=== PATIENT | male | born 1960 | race Caucasian/White ===

== ENCOUNTER → 2016-09-07 | Outpatient (CLI) | payer MEDICARE ==
[~2016-09-07] MED LIST: GADOBUTROL 7.5 MMOL/7.5 ML VIAL IV ONE
--- NOTE | 2016-09-07 14:19 | RAD ---
PROCEDURE MR of the right upper back with and without contrast HISTORY Palpable mass for 7 years. COMPARISON None TECHNIQUE Surface marker placed at the area of palpable mass. Multiplanar sequences are obtained centered at this area of concern, before and after contrast. FINDINGS Poorly encapsulated fatty mass identified in the subcutaneous tissues at the area of concern. This measures approximately 2.7 cm by 2.2 cm by 2.6 cm. This is compatible with a poorly encapsulated lipoma. No significant edema. No significant non-fatty or cellular mass. No fluid collection. No abnormal contrast enhancement. Mild fusiform fatty signal identified within the trapezius muscle compatible with a small lipoma. 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 Electronically signed by: Jim Quinn MD (September 07, 2016 14:18:49)
== END | disposition home or self-care (01) ==
LOC: MRI 10:04
PROVIDERS: ATTEND Specialist
DX: R22.2 Localized swelling, mass and lump, trunk (principal)
CPT/HCPCS: 71552; A9585

== ENCOUNTER → 2020-03-11 | Outpatient (CLI) | payer MEDICARE, OTHER ==
--- NOTE | 2020-03-11 14:11 | KCIC ---
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 COMPARISON: None available. FINDINGS: The scalp and calvarium are normal. The superior sagittal sinus demonstrates normal venous flow. The corpus callosum is normal in shape and signal intensity. The posterior fossa is unremarkable. The pituitary and sella are normal. The brainstem and craniocervical junction are unremarkable. There is a remote lacunar infarct involving the left neal radiata Diffusion weighted images reveal no hyperintensities to suggest acute cerebral infarction. The susceptibility weighted sequences reveal no evidence of acute or chronic hemorrhage. Minimal ex vacuo dilatation of the anterior body of the left lateral ventricle due to lacunar infarct. There is opacification of the anterior right ethmoid air cells. There is moderate mucosal thickening of the left sphenoid sinus with involvement of the lateral recess of the left sphenoid sinus. There is a right mastoid effusion. The orbits appear normal. Normal flow voids are demonstrated in the carotid arteries and basilar artery. IMPRESSION: No evidence for acute or subacute ischemia. There is a remote lacunar infarct involving the left frontal neal radiata with minimal ex vacuo dilatation of the body of the left lateral ventricle. Right mastoid effusion. Mild mucosal inflammatory changes are identified as described in detail above. Electronically signed by: Lissett Davila MD (03/11/2020 2:08 PM) [facility]
== END ==
LOC: KCIC MRI 12:25
PROVIDERS: ATTEND Psychiatry & Neurology Neurology with Special Qualifications in Child Neurology
DX: I63.81 Other cerebral infarction due to occlusion or stenosis of small artery (principal); R41.3 Other amnesia; D49.6 Neoplasm of unspecified behavior of brain; G93.6 Cerebral edema
CPT/HCPCS: 70551